=== PATIENT | female | born 1995 | race Hispanic/Latino ===

== ENCOUNTER 2024-09-12 20:48 | Emergency (ER) | payer OTHER ==
[~2024-09-12] VITALS: Ht 157.5 cm; Wt 61.2 kg
--- NOTE | 2024-09-12 20:50 | NUR ---
UA CUP PROVIDED
--- NOTE | 2024-09-13 00:16 | HMCIMG ---
EXAM: CT examination of the Brain without contrast. CLINICAL HISTORY: Closed head injury. TECHNIQUE: Thin collimated axial CT images of the brain were obtained with sagittal and coronal reformatted images also submitted. CT scan done according to ALARA (As Low as Reasonably Achievable). CONTRAST USED: None. COMPARISON: None provided. FINDINGS: No acute intracranial abnormality is present. No acute cortical infarction, hemorrhage, mass or mass effect. No hydrocephalus or abnormal extra-axial fluid collections. Persistent cavum septum pellucidum. The posterior fossa is unremarkable. The skull base and calvarium are intact. The included portions of the paranasal sinuses and mastoid air cells are clear. IMPRESSION: No acute intracranial abnormality is present. /[place]
--- NOTE | 2024-09-13 00:26 | ERN ---
General Chief Complaint: Head Injury Stated Complaint: HEAD INJURY Time Seen by MD: 21:30 History of Present Illness Allergies: Coded Allergies: No Known Allergies (Unverified Allergy, Unknown, 09/12/24) Past Medical History Past Medical History: No Pertinent History Past Surgical History: None Female( History) LMP: Aug 23, 2024 Results Laboratory and Microbiology Lab and Micro Result Laboratory Tests Test 09/12/24 22:51 Urine HCG, Qualitative NEGATIVE (NEGATIVE) ED Course Orders Procedure Category Date Status Time ,Urine Test LAB 09/12/24 Complete 22:24 Ct Head/Brain W/O CT 09/12/24 Resulted Contrast 22:24 Vital Signs Date Time Temp Pulse Resp B/P (MAP) Pulse Ox O2 Delivery O2 Flow Rate FiO2 09/12/24 22:40 98.2 79 17 121/77 98 Room Air* 0 21 09/12/24 20:49 97.0 72 18 124/71 100 Room Air DX & DISP Disposition: Discharge Departure Impression: Primary Impression: Closed head injury Condition: Stable Referrals: SELF,REFERRAL (PCP) I have reviewed the case, and I agree with, Diagnosis and Plan I performed the substantive portion of the visit. I have reviewed and personally made and approve the management plan that is documented in the note by myself or the ERNIE. I acknowledge for responsibility for the patient's management plan. TANK DE LA GARZA Sep 13, 2024 00:26
[2024-09-13 00:30] VITALS: BP 119/79; PULSE 78; RESP 18; TEMP 98.1; O2SAT 98
== END 2024-09-13 00:35 | disposition home or self-care (01) ==
LOC: EDH 20:48
DX: S09.90XA Unspecified injury of head, initial encounter (principal); W18.39XA Other fall on same level, initial encounter; Y93.89 Activity, other specified; Y92.89 Other specified places as the place of occurrence of the external cause; Y99.8 Other external cause status
CPT/HCPCS: 70450; 81025; 99284